=== PATIENT | female | born 1985 | race American Indian/Alaskan Native ===

== ENCOUNTER 2019-09-27 03:19 | Inpatient (IN) | payer MEDICAID ==
--- NOTE | 2019-09-27 03:45 | Procedure Note ---
OB Delivery Note - Delivery Date of Delivery: 09/27/19 (02:55 inside the Ambulance) Surgeon: IDALMIS COVINGTON ([place]) Estimated blood loss: <100cc - Vaginal Delivery presentation: vertex Intrapartum events: precipitous labor- <3hr Delivery induction: none Delivery monitor: none Route of delivery: (02:55) Delivery placenta: spontaneous (03:17) Delivery cord: 3 umbilical vessels Episiotomy: none Delivery laceration: 1st degree (perineal) Delivery repair: other (left unrepaired) Anesthesia: none Delivery comments: Precipitous inside the ambulance en route to the hospital on 09/27/19 @ 02:55. Upon my arrival in the room, baby crying in the radiant warmer and being examined by RN. Pt in bed with placenta undelivered. Minimal bleeding noted. Spontaneous delivery of placenta, Fred-side presenting @ 03:17. Small lochia with blood clots noted. Fundal massage and IV Pitocin bolus initiated. Fundus F/ML/U. Placenta intact; was discarded. 1s degree perineal laceration noted and hemostatic so left unrepaired. Mom and baby in stable condition. - Infant A at 5 minutes: 9 Infant Gender: Female (6 lbs 9.7 oz (2999 gm); 18.5 in)
--- NOTE | 2019-09-27 03:56 | History and Physical Report ---
History of Present Illness Date of examination: 09/27/19 Date of admission: 09/27/19 03:19 Chief complaint: Home delivery History of present illness: 33yo G 3 P 2 0 1 2 @ 39 weeks 3 days presenting to L&D with baby spontaneously delivered inside the ambulance on 09/27/19 @ 02:55. She reports she started having contractions at approximately 12am and spontaneously ruptured when the ambulance arrived at her home. She is a walk-in pt who initiated care early on in her at [facility] in [place], [place]. She denies any complications throughout the . No records are available. She denies any past medical problems. Past History Past Medical History: no pertinent history Past Surgical History: no surgical history Family/Genetic History: hypertension (mom) Social history: single, lives with family, full code. denies: smoking, alcohol abuse, prescription drug abuse, IV drug use - Obstetrical History Expected Date of Delivery: 10/01/19 Actual Gestation: 39 Week(s) 3 Day(s) : 3 Para: 2 Hx # Term Pregnancies: 2 Number of Pregnancies: 0 Spontaneous Abortions: 0 Induced : 1 Number of Living Children: 2 Medications and Allergies Allergies Allergy/AdvReac Type Severity Reaction Status Date / Time No Known Allergies Allergy Verified 09/27/19 03:41 Active Meds: Active Medications Oxytocin/Sodium Chloride (Pitocin/Ns 20 Unit/1000ml Drip) 20 units in 1,000 mls @ 125 mls/hr IV DIRECT RANDEE Review of Systems All systems: negative - Vital Signs Vital signs: Vital Signs Pulse BP 82 118/57 09/27/19 03:26 09/27/19 03:26 Temp Pulse Resp BP Pulse Ox 90 115/55 09/27/19 03:40 09/27/19 03:40 - Physical Exam Abdomen: Positive: normal appearance, soft Genitourinary (Female): Positive: normal external genitalia, other (first degree perineal laceration noted - hemostatic) Uterus: Positive: enlarged, normal contour Anus/Rectum: Positive: normal perianal skin Extremities: Positive: normal Results All other labs normal. Assessment and Plan - Patient Problems (1) 39 weeks gestation of Current Visit: Yes Status: Acute (2) Precipitous delivery Current Visit: Yes Status: Acute Plan to address problem: Admit to L&D with routine labor orders Transfer to mother/Baby per protocol (3) Single liveborn infant, born outside hospital Current Visit: Yes Status: Acute
[2019-09-27] MEDS ORDERED: HYDROcodone/ACETAMINOPHEN 5-325 MG TAB PO PRN (04:00)
[2019-09-27] MEDS ORDERED: OXYTOCIN 20 UNIT/1000ML DRIP 20 UNITS/1,000 ML BAG IV SCH (04:00)
[2019-09-27] MEDS ORDERED: ONDANSETRON 4 MG/2 ML INJ IV PRN (04:00)
[2019-09-27] MEDS ORDERED: ACETAMINOPHEN 325 MG TAB PO PRN (04:00)
[2019-09-27] MEDS ORDERED: WITCH HAZEL/ GLYCERIN PAD TP PRN (04:00)
[2019-09-27] MEDS ORDERED: LANOLIN/ZINC/DIMETHICONE (LANSINOH) 7 GM TP PRN (04:00)
[2019-09-27] MEDS ORDERED: diphenhydrAMINE 25 MG CAP PO PRN (04:00)
[2019-09-27] MEDS ORDERED: PROMETHAZINE 25 MG TAB PO PRN (04:00)
[2019-09-27] MEDS ORDERED: PROMETHAZINE 25 MG RECT SUPP PR PRN (04:00)
[2019-09-27] MEDS ORDERED: MAGNESIUM HYDROXIDE (MOM) ORAL LIQD UDC PO PRN (04:00)
[2019-09-27 06:15] LABS: Hematocrit 38.4 % (30.3-42.9); Hemoglobin 12.9 gm/dl (10.1-14.3); Mean Corpuscular HGB Conc 34 % (30-34); Mean Corpuscular Volume 90 fl (79-97); Platelet Count 247 K/mm3 (140-440); Red Blood Count 4.26 M/mm3 (3.65-5.03); Red Cell Distribution Width 14.2 % (13.2-15.2)
[2019-09-27] MEDS: IBUPROFEN 600 MG TAB PO SCH ×3 (06:29→16:15)
[2019-09-27 06:56] LABS: Hepatitis C Virus Antibody Non-Reactive (NonReactive)
[2019-09-27 06:57] LABS: Amphetamine Screen,Urine PRESUMPTIVE NEGATIVE; Benzodiazepines Screen,Urine PRESUMPTIVE NEGATIVE; Cannabinoid Screen,Urine PRESUMPTIVE NEGATIVE; Cocaine Screen,Urine PRESUMPTIVE NEGATIVE; Methadone Screen,Urine PRESUMPTIVE NEGATIVE; Opiate Screen,Urine PRESUMPTIVE NEGATIVE
[2019-09-27] MEDS: PRENATAL VIT27-FE FUMARATE-FOLIC ACID VIT TAB PO SCH (09:23)
[2019-09-27] MEDS: FERROUS SULFATE 325 MG TAB PO SCH (09:23)
[2019-09-28] MEDS: IBUPROFEN 600 MG TAB PO SCH ×4 (00:41→10:15)
[2019-09-28 07:08] LABS: Hematocrit 34.5 % (30.3-42.9); Hemoglobin 11.5 gm/dl (10.1-14.3)
[2019-09-28] MEDS: PRENATAL VIT27-FE FUMARATE-FOLIC ACID VIT TAB PO SCH (10:14)
[2019-09-28] MEDS: FERROUS SULFATE 325 MG TAB PO SCH (10:14)
--- NOTE | 2019-09-28 13:43 | Progress Note ---
Assessment and Plan PPD 1 s/p . Doing well. Plan for discharge on today. Pt is GBS negative. Subjective - Subjective Date of service: 09/28/19 Principal diagnosis: Precipitous delivery Patient reports: appetite normal, voiding normally, pain well controlled, ambulating normally : doing well Objective - Vital Signs Latest vital signs: Vital Signs Temp Pulse Resp BP BP Pulse Ox 09/28/19 09:16 98.0 F 95 H 18 111/71 100 09/28/19 00:41 18 09/27/19 23:52 98.1 F 92 H 20 90/53 98 09/27/19 16:58 98.4 F 18 108/67 Intake and Output 09/27/19 09/28/19 09/28/19 22:59 06:59 14:59 Intake Total 240 120 Balance 240 120 Intake: Oral 240 120 Other: Total, Intake Amount 240 120 # Voids Void 1 1 - Exam Breasts: Present: deferred Cardiovascular: Present: Regular rate, Normal S1, Normal S2 Lungs: Present: Clear to auscultation, Normal air movement Abdomen: Present: normal appearance, soft Vulva: both: normal Uterus: Present: normal Extremities: Present: normal
--- NOTE | 2019-09-28 13:46 | Discharge Summary ---
Providers - Providers Date of Admission: 09/27/19 03:19 Date of discharge: 09/28/19 Attending physician: CAROL CALDERON Primary care physician: LINER MACHINE OPERATOR Hospitalization Reason for admission: active labor Delivery: Episiotomy: none Other procedures: none complications: none Discharge diagnosis: IUP at term delivered [place] baby: female Hospital course: Unremarkable Condition at discharge: Good Disposition: DC-01 TO HOME OR SELFCARE Plan - Discharge Medications Prescriptions: Ibuprofen [Motrin] 800 mg PO Q8HR PRN #40 tablet PRN Reason: Pain, Moderate (4-6) Vit-Fe Fumar-FA [ Vitamin] 1 each PO QDAY #30 tablet - Provider Discharge Summary Activity: routine, no sex for 6 weeks, no heavy lifting 4 weeks, no strenuous exercise Diet: routine Instructions: routine Additional instructions: [] Smoking cessation referral if applicable(refer to patient education folder for contact #) [] Refer to [facility] Booklet Call your doctor immediately for: * Fever > 100.5 * Heavy vaginal bleeding ( >1 pad per hour) * Severe persistent headache * Shortness of breath * Reddened, hot, painful area to leg or breast * Drainage or odor from incision. * Keep incision clean and dry at all times and follow doctor's instructions regarding bathing/showering - Follow up plan Follow up: JAGDISH BLOUNT MD [Primary Care Provider] - 6 Weeks CAROL CALDERON MD [Staff Physician] - 6 Weeks Forms: [facility] Discharge Summary
[2019-09-28 16:40] VITALS: BP 112/72
== END 2019-09-28 17:00 | disposition home or self-care (01) | DRG 775 ==
LOC: LD 03:19 → OB 05:25
PROVIDERS: ADMIT Obstetrics & Gynecology; ATTEND Obstetrics & Gynecology
PROC: 10E0XZZ Delivery of Products of Conception, External Approach (ICD-10-PCS; principal; 2019-09-27)
PROC: 0HQ9XZZ Repair Perineum Skin, External Approach (ICD-10-PCS; 2019-09-27)
DX: O62.3 Precipitate labor (principal); Z3A.39 39 weeks gestation of pregnancy; Z37.0 Single live birth; O70.0 First degree perineal laceration during delivery; O71.82 Other specified trauma to perineum and vulva
CPT/HCPCS: 36415; 80307; 85014; 85018; 85027; 86592; 86706; 86762; 86803; 86850; 86900; 86901; 87806; G0378; A6250; J2590